=== PATIENT | male | born 1960 | race Caucasian/White ===

== ENCOUNTER 2017-05-19 09:54 | Emergency (ER) | payer SELFPAY ==
[2017-05-19 10:46] VITALS: BP 183/97; PULSE 89; RESP 18; TEMP 36.6; O2SAT 96; BMI 29.8
[2017-05-19 10:58] LABS: UTC Influenza A Antigen Negative (Negative); UTC Influenza B Antigen Negative (Negative); UTC Strep Screen (Rapid) Negative (Negative)
--- NOTE | 2017-05-19 11:12 | HMH.EDUTC ---
[facility] [place] Clinical Impression: Acute sinusitis with symptoms > 10 days Disposition: Home, Self-Care Condition on Discharge: Good Instructions: DI for Sinusitis Additional Instructions: * Start antibiotic and be sure to take as ordered for the FULL length of time even if you feel better. Sinus infections do not get better overnight. It may take 2-3 days to notice much improvement so be sure to use conservative measures as discussed for symptoms. * Avoid sudafed and over the counter medications that contain decongestants as these WILL raise your BP even higher. Coricidin HBP is a line of products for people with high blood pressure * Flonase 2 sprays each nostril daily to help with nasal congestion, sinus and ear pressure/inflammation * No steroids with your BP so high. You need to take your BP medications daily. * Lots of fluids * Sleep elevated * Humidifier/vaporizer Prescriptions: Doxycycline Hyclate [Vibramycin] 100 mg PO BID #20 cap Fluticasone Propionate [Flonase 50mcg nasal spray 16gm] 2 spr NS DAILY #1 bottle Referrals: Paul Thorne MD [Primary Care Provider] - (IMMEDIATELY for new or worsening symptoms OR no noticeable improvement over the next 3-5 days. 911 for difficulty breathing or swallowing. ) Time of Disposition: 11:23 Medical Decision Making Vital Signs: 05/19/17 10:46 Temperature 97.8 F Temperature Source Temporal Artery Scan Pulse Rate [Right Radial] 89 Respiratory Rate 18 Blood Pressure [Right Arm] 183/97 Blood Pressure Mean [Right Arm] 125 02 Sat by Pulse Oximetry 96 Oxygen Delivery Method Room Air - Lab Data Lab results reviewed: Yes: I reviewed the patient's lab results. Lab Results 05/19/17 10:03: Influenza Type A Ag Negative, Influenza Type B Ag Negative, Strep Scn Rapid Clinic Negative Orders (Tests/Meds): ORDERS Category Date Time Status Strep Screen Confirmation Stat Micro 05/19/17 10:03 Received - Ryan Inquiry Pt receiving controlled substance: No - Reevaluation(s) Reevaluation #1: Pt wanting injection just any injection possible . States itching and rash with amoxicillin. Unknown tolerance with cephlosporins. BP elevated due to not taking BP medications and use of over the counter medications for symptoms. Discussed risk associated w/ steroids and HTN. [facility] [place] - General Stated complaint: Poss Flu Time Seen by Provider: 05/19/17 11:12 Mode of Arrival: Family Vehicle Source of Information: Patient Limitations: No Limitations Description of Symptoms (Recalled from Triage Doc. by RN): pt c/o sore throat, cough, congestion. HEENT Symptoms (Recalled from RN notes): Yes (sore throat, cough, congestion) Resp Symptoms (Recalled from RN notes): No Skin Symptoms (Recalled from RN notes): No MS Symptoms (Recalled from RN notes): No Functional Status (Recalled from RN notes): na - History of Present Illness Provider Complaint: c/o sinus pressure and congestion. Started 2 weeks ago like I had been hit by a bus . Seemed to improve somewhat over 5 days, felt just ok for several days then suddenly back with worsening nasal and sinus congestion/pressure. He isn't sure what he has been taking for symptoms. Everything over the counter . Thinks allergy medication, sinus medication, decongestants, mucinex. no cough syrup. Has not been taking three BP medications for the last 3-4 days. No known sick contacts. - Related Data Home Medications Medication Instructions Recorded Confirmed Benazepril HCl 10 mg PO DAILY 05/19/17 05/19/17 Bisoprolol Fumarate 10 mg PO DAILY 05/19/17 05/19/17 Lisinopril [Lisinopril 20mg Tab] 20 mg PO DAILY 05/19/17 05/19/17 Previous Rx's Medication Instructions Recorded Doxycycline Hyclate [Vibramycin] 100 mg PO BID #20 cap 05/19/17 Fluticasone Propionate [Flonase 2 spr NS DAILY #1 bottle 05/19/17 50mcg nasal spray 16gm] Allergies Allergy/AdvReac Type Severity Reaction Status Date / Time Mustaphai
--- NOTE | 2017-05-19 11:20 | ED_ITS ---
[facility] [place] Impression: Acute sinusitis with symptoms > 10 days Disposition: Home, Self-Care Condition on Discharge: Good Instructions: DI for Sinusitis Additional Instructions: * Start antibiotic and be sure to take as ordered for the FULL length of time even if you feel better. Sinus infections do not get better overnight. It may take 2-3 days to notice much improvement so be sure to use conservative measures as discussed for symptoms. * Avoid sudafed and over the counter medications that contain decongestants as these WILL raise your BP even higher. Coricidin HBP is a line of products for people with high blood pressure * Flonase 2 sprays each nostril daily to help with nasal congestion, sinus and ear pressure/inflammation * No steroids with your BP so high. You need to take your BP medications daily. * Lots of fluids * Sleep elevated * Humidifier/vaporizer Prescriptions: Doxycycline Hyclate [Vibramycin] 100 mg PO BID #20 cap Fluticasone Propionate [Flonase 50mcg nasal spray 16gm] 2 spr NS DAILY #1 bottle Referrals: Paul Thorne MD [Primary Care Provider] - (IMMEDIATELY for new or worsening symptoms OR no noticeable improvement over the next 3-5 days. 911 for difficulty breathing or swallowing. ) Time of Disposition: 11:23 Medical Decision Making Vital Signs: 05/19/17 10:46 Temperature 97.8 F Temperature Source Temporal Artery Scan Pulse Rate [Right Radial] 89 Respiratory Rate 18 Blood Pressure [Right Arm] 183/97 Blood Pressure Mean [Right Arm] 125 02 Sat by Pulse Oximetry 96 Oxygen Delivery Method Room Air - Lab Data Lab results reviewed: Yes: I reviewed the patient's lab results. Lab Results 05/19/17 10:03: Influenza Type A Ag Negative, Influenza Type B Ag Negative, Strep Scn Rapid Clinic Negative Orders (Tests/Meds): ORDERS Category Date Time Status Strep Screen Confirmation Stat Micro 05/19/17 10:03 Received - Ryan Inquiry Pt receiving controlled substance: No - Reevaluation(s) Reevaluation #1: Pt wanting injection just any injection possible . States itching and rash with amoxicillin. Unknown tolerance with cephlosporins. BP elevated due to not taking BP medications and use of over the counter medications for symptoms. Discussed risk associated w/ steroids and HTN. [facility] [place] - General Stated complaint: Poss Flu Time Seen by Provider: 05/19/17 11:12 Mode of Arrival: Family Vehicle Source of Information: Patient Limitations: No Limitations Description of Symptoms (Recalled from Triage Doc. by RN): pt c/o sore throat, cough, congestion. HEENT Symptoms (Recalled from RN notes): Yes (sore throat, cough, congestion) Resp Symptoms (Recalled from RN notes): No Skin Symptoms (Recalled from RN notes): No MS Symptoms (Recalled from RN notes): No Functional Status (Recalled from RN notes): na - History of Present Illness Provider Complaint: c/o sinus pressure and congestion. Started 2 weeks ago like I had been hit by a bus . Seemed to improve somewhat over 5 days, felt just ok for several days then suddenly back with worsening nasal and sinus congestion/pressure. He isn't sure what he has been taking for symptoms. Everything over the counter . Thinks allergy medication, sinus medication, decongestants, mucinex. no cough syrup. Has not been taking three BP medications for the last 3-4 days. No known sick contacts. - Related Data Home Medications
[2017-05-19 11:27] VITALS: BP 0/0; PULSE 87; RESP 20; TEMP 36.6; O2SAT 99
--- NOTE | 2017-05-19 11:28 | PC.NURSE ---
1127-PT REFUSED TO HAVE BLOOD PRESSURE RECHECKED D/T THE BLOOD PRESSURE CUFF SQUEEZING HIS ARM TOO TIGHT.
== END 2017-05-19 11:29 | disposition home or self-care (01) ==
PROVIDERS: Emergency Provider Nurse Practitioner Family; Family Provider Family Medicine; PCP Family Medicine
DX: J01.90 Acute sinusitis, unspecified (principal); I10 Essential (primary) hypertension; Z79.899 Other long term (current) drug therapy; F17.210 Nicotine dependence, cigarettes, uncomplicated
CPT/HCPCS: 87804; 87880; 99202

== ENCOUNTER → 2021-08-02 12:51 | Outpatient (CLI) | payer OTHER, SELFPAY ==
--- NOTE | 2021-08-02 13:00 | CA_ITS ---
APPROVED REPORT EXAM: Comprehensive 2D, Doppler, and color-flow Echocardiogram Paster Hat Lining: Brittney Benavides RT(R) Ht: 6 ft 0 in Wt: 225lbs BSA: 2.24 BP: 143/83 mmHg Indications: CVA 3 weeks ago, smoker, fatigue, HTN, MURPHY, hyperlipidemia, family history of HD 2D Dimensions LVOT 2.05 cm (M/F) 1.5-2.5 LA Volume 51.00 mL LA Volume Index 22.76 mL/m2 (M/F) 16-34 M-Mode Dimensions RVDd 3.42 cm (0.9-2.6) LA Diam 3.63 cm (1.9-4.0) LVDd 4.87 cm (3.5-5.7) Ao Diam 2.26 cm (2.0-3.7) LVDs 3.38 cm (3.5-5.7) IVSd 1.41 cm (0.6-1.1) PWd 1.13 cm (0.6-1.1) EF (Teich) 57.90% FS 30.60% EDV (Teich) 111.20 mL ESV (Teich) 46.80 mL LV Diastology E Decel Time 190.00 (160-240 msec) E/A Ratio 1.7 MED E' 6.80 (< 7 cm/sec) E'/MED E' Ratio 14.41 (>14) LAT E' 8.90 (<10 cm/sec) E/LAT E' Ratio 11.01 (>14) Mitral Valve MV E Max Niko. 98.00 (40-130 cm/s) MV A Velocity 59.00 (40-130 cm/s) E/A Ratio 1.67 MV Decel. Time 190.00 (160-240 ms) MV PHT 56.00 ms Left Ventricle Left atrium is qualitatively mildly enlarged, left ventricle is normal size, mild concentric left ventricular hypertrophy, estimated ejection fraction 55% with no regional wall motion abnormality, diastolic parameters are inconclusive. Right Ventricle Right atrium and right ventricle are mildly enlarged with normal contractility. Aortic Valve Aortic valve is minimally thickened and fibrosed there is no aortic stenosis or aortic insufficiency. Mitral Valve Mitral valve leaflets are minimally thickened, there is no mitral stenosis, there is trace mitral regurgitation. Tricuspid Valve Tricuspid valve grossly normal, there is trace tricuspid regurgitation, tricuspid regurgitation jet velocity is inadequate for calculation of the right ventricular systolic pressure. Pulmonic Valve Pulmonic valve is poorly visualized. Great Vessels Aortic root is normal size. Inferior vena cava is normal size with normal inspiratory collapse. Pericardium No significant pericardial effusion noted. Conclusion 1. Mild biatrial enlargement, normal left ventricular size, mild concentric left ventricular hypertrophy, estimated ejection fraction 55% with no regional wall motion abnormality, diastolic parameters are inconclusive. 2. Mildly enlarged right ventricle with normal contractility. 3. Thickened and calcified aortic valve without aortic stenosis or aortic insufficiency. 4. Trace mitral and tricuspid regurgitation. 5. No significant pericardial effusion. 6. Inferior vena cava normal size with normal spectral collapse. Electronically signed by : Hunter Wolfe MD 08/03/2021 14:37:48
--- NOTE | 2021-08-02 13:42 | CT_ITS ---
FINAL REPORT TECHNIQUE: Thin section axial CT with IV contrast supplemented with multiplanar reconstruction under CT angiogram protocol. This study was performed with techniques to keep radiation doses as low as reasonably achievable (ALARA). Individualized dose reduction techniques using automated exposure control or adjustment of mA and/or kV according to the patient''s size were employed. NASCET criteria was utilized during interpretation. CLINICAL HISTORY: ISCHEMIC CEREBROVASCULAR ACCIDENT OF FRONTAL LOBE (PATIENT STATES THIS WAS 3 WEEKS AGO, MRI AT FINDINGS: Aortic arch: Arch shows no significant narrowing. There is mild stenosis of the proximal left subclavian artery. Right carotid: There is mild stenosis of the proximal right ICA, less than 50%. Left carotid: Left ICA is occluded. Vertebral: Proximal right vertebral artery is occluded with reconstitution distally. Left vertebral artery is dominant. Mild fibrosis/scarring is seen in the lung apices. IMPRESSION: Occlusion of the left ICA. Occluded proximal right vertebral artery with reconstitution distally. Less than 50% stenosis of the proximal right ICA. Mild stenosis of the proximal left subclavian artery. Reviewed, Interpreted and Dictated by Salty Koroma III, MD Transcribed by Angel Rodas Authenticated by Salty Koroma III, MD on 08/02/2021 03:31:13 PM [facility]
--- NOTE | 2021-08-02 13:42 | CT_ITS ---
FINAL REPORT TECHNIQUE: Thin section axial CT with IV contrast supplemented with multiplanar reconstruction under CT angiogram protocol. 3-D reconstructions were performed. This study was performed with techniques to keep radiation doses as low as reasonably achievable (ALARA). Individualized dose reduction techniques using automated exposure control or adjustment of mA and/or kV according to the patient''s size were employed. CLINICAL HISTORY: CEREBROVASCULAR ACCIDENT OF BASIL GANGLIA (PATIENT STATES THIS HAPPENED ABOUT 3 WEEKS AGO, MRI DONE AT FINDINGS: The distal vertebral, basilar and right internal carotid arteries have an unremarkable appearance. There is occlusion of the distal left internal carotid artery with reconstitution in the post cavernous left ICA. There is a somewhat small caliber of the left M1 segment. IMPRESSION: Occlusion of the distal left ICA with reconstitution of the post cavernous left ICA. Somewhat small caliber of the left M1 segment. Reviewed, Interpreted and Dictated by Salty Koroma III, MD Transcribed by Angel Rodas Authenticated by Salty Koroma III, MD on 08/02/2021 03:31:13 PM [facility]
== END ==
PROVIDERS: PCP Family Medicine; Visit Provider Family Medicine
DX: I63.81 Other cerebral infarction due to occlusion or stenosis of small artery (principal); I10 Essential (primary) hypertension
CPT/HCPCS: 70496; 70498; 93306; Q9967

== ENCOUNTER 2021-10-19 15:01 | Inpatient (IN) | payer OTHER, SELFPAY ==
[2021-10-19] VITALS (23 sets, daily range): BP systolic 81–187; BP diastolic 44–92; PULSE 40–88; RESP 15–31; TEMP 36.5–36.8; O2SAT 92–100; BMI 30.5; BMI 27.8; BMI 29.1
--- NOTE | 2021-10-19 15:11 | PC.NURSE ---
notified rad of ct head stroke protocol
--- NOTE | 2021-10-19 15:18 | PC.NURSE ---
FINGER STICK 112 BRIDGET RN SAID CANCEL THE HEAD CT
--- NOTE | 2021-10-19 15:23 | HMH.EDGENADL ---
ED Disposition Clinical Impression: Bradycardia, Brain TIA, COVID-19, Elevated troponin Hypotension Qualifiers: Hypotension type: unspecified hypotension type Qualified Code(s): I95.9 - Hypotension, unspecified Disposition: Admitted As Inpatient Condition on Discharge: Serious - Critical Care Critical Care Time: Yes Attestation: On 10/19/21, the high probability of a clinically significant, sudden or life threatening deterioration of the following system(s) required my full and direct attention, intervention and personal management. The time I documented below is in addition to time spent performing reported procedures but includes the following listed in this critical care notation. Total Critical Care Time: 45 Vital system(s) involved:: Circulatory Failure My critical care processes included: Assessment & monitoring of V/S, Initial and Re-exams, Data Review/Interpretation, Coordinating Care, Medication Orders and management, Documentation Medical Decision Making - Medical Records Medical records reviewed: Yes: I reviewed the patient's medical records. MR Comment: Reviewed prior records of CTA head and neck, see below - Ryan Inquiry Pt receiving controlled substance: No Vital Signs: 10/19/21 15:01 10/19/21 15:47 10/19/21 16:29 Temperature 98 F Temperature Source Oral Pulse Rate 46 L 41 L Pulse Rate [Radial] 48 L Respiratory Rate 16 20 Blood Pressure 133/59 L 109/67 L Blood Pressure [Right Arm] 187/92 H Blood Pressure Mean [Right Arm] 123 Blood Pressure Position Blood Pressure Position [Right Arm] Sitting 02 Sat by Pulse Oximetry 98 10/19/21 16:35 10/19/21 17:07 10/19/21 17:09 Temperature Temperature Source Pulse Rate 44 L 42 L 44 L Pulse Rate [Radial] Respiratory Rate 15 Blood Pressure 106/60 L 81/44 L 81/44 L Blood Pressure [Right Arm] Blood Pressure Mean [Right Arm] Blood Pressure Position Sitting Blood Pressure Position [Right Arm] 02 Sat by Pulse Oximetry 98 10/19/21 17:18 10/19/21 17:26 10/19/21 17:31 Temperature Temperature Source Pulse Rate 43 L 42 L 42 L Pulse Rate [Radial] Respiratory Rate Blood Pressure 98/65 L 125/47 L 104/59 L Blood Pressure [Right Arm] Blood Pressure Mean [Right Arm] Blood Pressure Position Sitting Sitting Blood Pressure Position [Right Arm] 02 Sat by Pulse Oximetry 10/19/21 18:17 10/19/21 18:23 10/19/21 18:30 Temperature Temperature Source Pulse Rate 45 L 44 L 44 L Pulse Rate [Radial] Respiratory Rate 17 Blood Pressure 117/57 L 96/64 L 113/60 Blood Pressure [Right Arm] Blood Pressure Mean [Right Arm] Blood Pressure Position Sitting Blood Pressure Position [Right Arm] 02 Sat by Pulse Oximetry 100 10/19/21 18:40 10/19/21 18:51 10/19/21 19:02 Temperature Temperature Source Pulse Rate 41 L 44 L 41 L Pulse Rate [Radial] Respiratory Rate Blood Pressure 115/72 126/47 L 147/71 H Blood Pressure [Right Arm] Blood Pressure Mean [Right Arm] Blood Pressure Position Sitting Blood Pressure Position [Right Arm] 02 Sat by Pulse Oximetry 10/19/21 19:13 Temperature Temperature Source Pulse Rate 40 L Pulse Rate [Radial] Respiratory Rate Blood Pressure 157/76 H Blood Pressure [Right Arm] Blood Pressure Mean [Right Arm] Blood Pressure Position Sitting Blood Pressure Position [Right Arm] 02 Sat by Pulse Oximetry - Lab Data Lab Results 10/19/21 15:20: SARS-CoV-2 (PCR) Detected A, Influenza A Untype (PCR) Not detected, Influenza Type B (PCR) Not detected 10/19/21 16:00: WBC 5.9, RBC 4.46 L, Hgb 15.1, Hct 45.2, MCV 101.4 H, MCH 33.8 H, MCHC 33.4, RDW 13.2, Plt Count 129 L, MPV 10.3, Neut % (Auto) 59.7, Lymph % (Auto) 30.3, [place] % (Auto) 7.4, Eos % (Auto) 1.3, Baso % (Auto) 1.2, Neut # (Auto) 3.5, Lymph # (Auto) 1.8, [place] # (Auto) 0.4, Eos # (Auto) 0.1, Baso # (Auto) 0.1 10/19/21 16:00: PT 10.9, INR 0.96, APTT 35.0 H
--- NOTE | 2021-10-19 15:33 | PC.NURSE ---
FAMILY IN WITH PT AND DR GARCIA IN WITH THEM
--- NOTE | 2021-10-19 15:44 | CT_ITS ---
FINAL REPORT TECHNIQUE: Thin section axial images were obtained from skull base to vertex without contrast. CLINICAL HISTORY: slurred speech, dropping things COMPARISON: CTA head dated August 02, 2021 FINDINGS: There is no mass effect or midline shift. There is no hydrocephalus. The ventricles are symmetric in size and configuration. There is no extra-axial or intraparenchymal hemorrhage. There is age indeterminate left frontal hypodensity. There is left occipital encephalomalacia. The posterior fossa is without acute abnormality. The basilar cisterns are preserved. The soft tissues are without acute abnormality. No acute osseous abnormality is identified. IMPRESSION: No mass effect, midline shift, or acute hemorrhage. Age indeterminate left frontal hypodensity. If indicated this could be further evaluated with MRI. Reviewed, Interpreted and Dictated by Ana Giraldo MD Transcribed by Angel Rodas Authenticated and [facility]
--- NOTE | 2021-10-19 15:50 | PC.NURSE ---
Pt to CT
--- NOTE | 2021-10-19 15:51 | PC.NURSE ---
pt to CT via stretcher at this time
--- NOTE | 2021-10-19 16:01 | XR_ITS ---
PROCEDURE INFORMATION: Exam: XR Chest Exam date and time: 10/19/2021 4:24 PM Age: 61 years old Clinical indication: Shortness of breath; Additional info: SOB TECHNIQUE: Imaging protocol: Radiologic exam of the chest. Views: 1 view. COMPARISON: CT ANGIO NECK 08/02/2021 2:07 PM FINDINGS: Lungs: Subtle bibasilar interstitial opacities. Upper lungs are unremarkable. Pleural spaces: Unremarkable. No pleural effusion. No pneumothorax. Heart/Mediastinum: Unremarkable. No cardiomegaly. Bones/joints: Unremarkable. IMPRESSION: Patchy bibasilar interstitial infiltrates.
--- NOTE | 2021-10-19 16:02 | PC.NURSE ---
pts family advised that dr palma office would send down a list of meds
[2021-10-19 16:07] LABS: Influenza A, PCR Not Detected (NotDetected); Influenza B, PCR Not Detected (NotDetected)
--- NOTE | 2021-10-19 16:15 | PC.NURSE ---
rad at BS for portable xray
[2021-10-19 16:36] LABS: Basophils # 0.1 K/mm3 (0-0.2); Basophils % 1.2 % (0.1-2.0); Chloride 104 mmol/L (98-107); Eosinophils # 0.1 K/mm3 (0.0-0.4); Eosinophils % 1.3 % (0.1-12.0); Hematocrit 45.2 % (42.0-52.0); Hemoglobin 15.1 g/dL (14.1-18.0); Lymphocytes # 1.8 K/mm3 (0.7-4.5); Lymphocytes % 30.3 % (10-50); Mean Corpuscular HGB Conc 33.4 g/dL (31.8-35.4); Mean Corpuscular Hemoglobin 33.8 pg (27.0-31.2); Mean Corpuscular Volume 101.4 fl (80-94); Mean Platelet Volume 10.3 fl (7.4-10.4); Monocytes # 0.4 K/mm3 (0.1-1.0); Monocytes % 7.4 % (1.7-9.3); Neutrophils # 3.5 K/mm3 (1.8-7.8); Neutrophils % 59.7 % (37.0-80.0); Platelet Count 129 K/mm3 (142-424); Red Blood Count 4.46 M/mm3 (4.60-6.20); Red Cell Distribution Width 13.2 % (11.5-17.5); White Blood Count 5.9 K/mm3 (4.8-10.8)
[2021-10-19 16:37] LABS: Potassium 4.8 mmoL/L (3.5-5.1); Sodium 137 mmol/L (136-145)
[2021-10-19 16:39] LABS: Alanine Aminotransferase 51 U/L (12-78); Aspartate Amino Transferase 49 U/L (17-59); Blood Urea Nitrogen 44 mg/dl (9-20); Creatinine Clearance Estimated 57 mL/min (50-200); Estimated Glomerular Filt Rate 39 ml/min (>60); GFR (African American) 47 ML/MIN (>60)
[2021-10-19 16:40] LABS: Albumin Level 4.4 g/dl (3.5-5.0); Albumin/Globulin Ratio 1.4 (1.1-1.8); Alkaline Phosphatase 71 U/L (38-126); Anion Gap 11.8 mEq/L (5-15); Bilirubin,Total 0.6 mg/dl (0.2-1.3); Calcium 9.5 mg/dl (8.4-10.2); Carbon Dioxide 26 mmol/L (22.0-30.0); Globulin 3.2 g/dL (1.3-3.2); Glucose 122 mg/dl (74-100); Total Protein,Serum 7.6 g/dl (6.3-8.2)
[2021-10-19 16:43] LABS: INR 0.96 (0.9-1.1); Prothrombin Time 10.9 seconds (10.1-12.5)
[2021-10-19 16:53] LABS: Troponin I 0.06 ng/ml (0.00-0.034)
[2021-10-19 16:57] LABS: Free Thyroxine Index 3.9 ug/dL (5.93-13.13); T4 (Thyroxine) 10.8 ug/dl (5.53-11.0); Triiodothryronine (T3) Uptake 36 % (23.5-40.5)
[2021-10-19 17:01] LABS: Coronavirus 19, PCR Detected (NotDetected)
--- NOTE | 2021-10-19 17:10 | PC.NURSE ---
CALLED TO BEDSIDE DUE TO NEW SYMPTOMS
--- NOTE | 2021-10-19 17:22 | ECG_ITS ---
APPROVED REPORT Exam: Resting ECG HR:41 bpm ECG Measurements Heart Rate 41 AXES VA 168 P 74 QRSd 111 QRS 15 QT 470 T 180 QTc 404 Conclusion SINUS BRADYCARDIA WITH SINUS ARRHYTHMIA MODERATE INTRAVENTRICULAR CONDUCTION DELAY [110+ ms QRS DURATION] ST DEVIATION AND MODERATE T-WAVE ABNORMALITY, CONSIDER LATERAL ISCHEMIA [-0.1+ mV T-WAVE IN I/aVL/V5/V6] ABNORMAL ECG UNCONFIRMED REPORT Electronically signed by : Jaydon Salvador MD 10/21/2021 08:05:33
[2021-10-19 17:25] LABS: POC Glucose,Bedside 111 (70-110)
--- NOTE | 2021-10-19 17:29 | PC.NURSE ---
DR JACK PAGED
--- NOTE | 2021-10-19 17:33 | PC.NURSE ---
dr on the phone with dr kaufman to consult about pt
[2021-10-19 18:00] LABS: NT Pro Brain Natriuretic Pep. 227 pg/mL (0-125)
--- NOTE | 2021-10-19 18:15 | PC.NURSE ---
PT WITH RT SIDE FACIAL DROOP, RT SIDE ATAXIA, RT ARM DRIFT. PT APHASIC, UNABLE TO ANSWER QUESTIONS. MD SALDIVAR
--- NOTE | 2021-10-19 18:26 | PC.NURSE ---
PT SYMPTOMS RESOLVED. PT ANSWER QUESTIONS ALERT AND ORIENTED X 4 FAMILY AT BEDSIDE.
--- NOTE | 2021-10-19 18:48 | PC.NURSE ---
7093 ROOM ASSIGNMENT REQUESTED, ROOM 206. ALL STAFF NOTIFIED
[2021-10-19 18:55] LABS: Lactic Acid 1.1 mmol/L (0.7-2.1)
[2021-10-19 19:00] LABS: Troponin I 0.06 ng/ml (0.00-0.034)
--- NOTE | 2021-10-19 19:23 | PC.NURSE ---
PT GOING FOR CT
--- NOTE | 2021-10-19 19:26 | PC.NURSE ---
Pt ambulated with staff assist to bathroom
--- NOTE | 2021-10-19 20:23 | PC.NURSE ---
Called report to Carole and updated family and pt that he would be going to his room shortly. No other needs at this time.
--- NOTE | 2021-10-19 20:35 | PC.NURSE ---
Pt sitting on side of bed at this time at his baseline mentality with a slight right facial droop. no other deficits noted.
--- NOTE | 2021-10-19 20:46 | PC.NURSE ---
pt arrived to floor via wheel chair at this time
--- NOTE | 2021-10-19 21:32 | PC.NURSE ---
2100-pt arrived to floor via wheel chair, pt went to bathroom upon arrival; bp 119/63, decreased levo drip to 2mcg/min (from 6mcg/min) 2109-bp 99/44, held levo drip at this time 2119-bp 127/71 2129-bp 97/63
--- NOTE | 2021-10-19 22:30 | PC.NURSE ---
updated MD Valentino about pt's confusion waxing and waning, stated to keep levophed drip on for increased perfusion to brain, want to keep systolic greater than 140mmHg; also informed of pt's snoring answer on admission sleep apnea criteria questions, no new orders at this time
[2021-10-19 22:33] LABS: Troponin I 0.07 ng/ml (0.00-0.034)
--- NOTE | 2021-10-19 23:48 | PC.NURSE ---
informed pt npo now for possible pacemaker placement tomorrow
[2021-10-20] VITALS (17 sets, daily range): BP systolic 124–174; BP diastolic 62–81; PULSE 40–55; RESP 17–24; TEMP 36.4–36.9; O2SAT 96–100
--- NOTE | 2021-10-20 02:42 | PC.NURSE ---
0100-bp 111/60, increased levo drip to 4mcg/min 0200-bp 124/62, increased levo drip to 6mcg/min
--- NOTE | 2021-10-20 05:28 | PC.NURSE ---
pt restless most of shift, pt answers orientation questions appropriately but has intermittent confusion that waxes and wanes, pt has no drift to any extremity, pt has right facial droop, pt ambulating to bathroom with standby assist, pt's HR remains 40-50's throughout shift, pt has been npo since midnight for possible pacemaker placement today, pt's bp stable but on levo drip at 6mcg/min to keep pt's systolic blood pressure greater than 140mmHg, MIVF going at 100mL/hr
--- NOTE | 2021-10-20 09:58 | HMH.HP ---
*Admission Date: 10/19/21 <Haydee Max - 10/20/21 10:15> *Chief complaint: weakness, bradycardia <Haydee Max - 10/20/21 10:15> *History of present illness: History obtained from patient, patient's son and son's girlfriend, and family friend that is a nurse. The patient is minimizing his complaints and does not seem like he wants to be here. He feels like he was forced to come here by his family. Family and friends states that since Friday they have noticed that his speech is different than normal. He has trouble finding his words. He does not speak as quickly or sharply as usual. They have noticed him dropping things. No specific one-sided weakness except for a droop of the left side of his mouth. His family friend that is a nurse took his heart rate yesterday and it was in the 40s. She called Dr. Valentino today and he was advised to come to the emergency department for evaluation. The patient denies any pain. He is denying any specific complaints at present. Denies headache. He also was diagnosed with COVID on Friday. He was having body aches and headaches but now that has resolved. States he has been in bed since Friday. 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 He had a CT angiogram of his head and neck done at this facility and then was sent to [facility] in [place]. He says he was seen by a brain surgeon and was advised that he is not a candidate for surgery because of the risk of dislodging or plaque. He was started on cholesterol medication and a baby aspirin a day. He was already on blood pressure medication prior to this event, which is not changed. He is supposed to see a neurologist on October 29. Since those events family states that he has episodes that last several minutes or he will have weakness and blurry vision, however he has never had an episode that lasted this long and the speech problems and left mouth droop are new symptoms. Patient had an episode of aphasia. On examination he has a right facial weakness and mild drift and ataxia of his right arm. Blood pressure noted to be 80s. Heart rate remains in the 40s. Fluid bolus started. Atropine dose given. Blood pressure came up to 110 systolic, but heart rate remained essentially unchanged. However, symptoms improved. He is speaking now and answering questions appropriately. Facial asymmetry improved markedly. He still has mild ataxia of his right arm. I contacted Dr. De Souza at 7:15 PM: He reports that the patient be kept on Levophed drip with target blood pressure greater than 140. If bradycardia persists he will put in a pacemaker. He will contact Dr. Valentino. (above as per ER physician) This morning patient states he feels fine. He has no weakness or facial asymmetry. He states he is breathing normally and has no chest pain. He did have pneumonia on chest x-ray and was started on antibiotics and remdesivir. His heart rate is still in the 40s. He remains on a Levophed drip. His blood pressure has improved. <Haydee Max 10/20/21 10:15> [facility] History I have reviewed the patient's past medical history: Yes <Haydee Max 10/20/21 10:15> Medical History: Reports:: Cerebrovascular Accident, Hypertension Denies:: Cancer, Diabetes Mellitus Type 1, Diabetes Mellitus Type 2, MRSA <Haydee Max 10/20/21 10:15> *Have you ever received a pneumonia vaccine?: No <Haydee Max 10/20/21 10:15> *Have you received a flu vaccine this season?: No <Haydee Max 10/20/21 10:15> Other Surgeries: Yes: Other (Back sx) <Haydee Max 10/20/21 10:15> Amputation: No <Haydee Max 10/20/21 10:15> Fractures: No <Haydee Max 10/20/21 10:15> - *Social History Smoking Status: Current every day smoker <Haydee Max 10/20/21 10:15> Tobacco Type: cigarettes <Haydee Max 10/20/21 10:15> # Packs/Day (cigarettes): 1 <Haydee Max 10/20/21 10:15> Alcohol Intake: never <Haydee Max 10/20/21 10:15> [place]
--- NOTE | 2021-10-20 12:07 | PC.NURSE ---
Levo gtt titrated to 4 mcg/min.
--- NOTE | 2021-10-20 13:55 | HMH.PHAVTE ---
[facility] Pharmacy VTE Monitoring - Patient Demographics Admission date: 10/20/21 Report Date: 10/20/21 Time: 13:55 Allergies/Adverse Reactions: Patient Allergies Penicillins Allergy (Mild, Verified 07/04/18 12:21) Rash Height: 1.8 m Weight: 94.432 kg Patient Problems: Current Active Problems Bradycardia (Acute) Hypotension (Acute) Brain TIA (Acute) COVID-19 (Acute) Elevated troponin (Acute) Pneumonia due to COVID-19 virus (Acute) Hypertension (Chronic) History of CVA (cerebrovascular accident) (Chronic) - VTE Risk Labs: VTE Related Lab Results Hgb 15.1 g/dL (14.1-18.0) 10/19/21 16:00 Hct 45.2 % (42.0-52.0) 10/19/21 16:00 Plt Count 129 K/mm3 (142-424) L 10/19/21 16:00 PT 10.9 seconds (10.1-12.5) 10/19/21 16:00 INR 0.96 (0.9-1.1) 10/19/21 16:00 APTT 35.0 seconds (22.8-30.6) H 10/19/21 16:00 BUN 44 mg/dl (9-20) H 10/19/21 16:00 Creatinine 1.80 mg/dl (0.66-1.25) H 10/19/21 16:00 Estimated Creat Clear 57 mL/min (50-200) 10/19/21 16:00 - Prophylaxis Types of VTE Prophylaxis: TEDS Knee High Location of Applied Device: Bilateral Lower Extremeties (RAFAEL HOSE ORDERED)
--- NOTE | 2021-10-20 17:45 | PC.NURSE ---
Levo gtt currently on 4 mcg/min, did have to turn up to 6 mcg/min this shift and currently on 4 mcg/min. Dr. De Souza ordered synthroid 25 mcg po daily this am. CB in reach. BP currently 147/86, hr 54. Dr. De Souza stated he wanted to wean levo, but keep sbp greater than 140.
[2021-10-21] VITALS (24 sets, daily range): BP systolic 111–190; BP diastolic 56–98; PULSE 41–73; RESP 13–34; TEMP 35.7–36.6; O2SAT 92–100; BMI 29.1; BMI 29.0
--- NOTE | 2021-10-21 | IR_ITS ---
APPROVED REPORT Patient Location: Inpatient Physical Chemistry Teacher: HENRY Coley RT (R) PROCEDURES 1. Pocket formation for Permanent Pacemaker Placement. 2. Placement of an atrial sensing and pacing coil into the right atrial appendage. 3. Placement of a ventricular sensing and pacing coil in the right ventricular apex. 4. Permanent Pacemaker Placement. INDICATION Symptomatic Bradycardia Informed consent was obtained prior to the procedure. COMPLICATIONS None Estimated Blood Loss: Less than 10 ML TECHNIQUE 1% Lidocaine with epinephrine used to anesthetized the left anterior aspect of the chest. Scalpel was used to make the initial cutaneous incision while electrocautery was used to dissect down tinto the fascia. The fascia was lifted off the pectoralis muscle and digitally manipulated creating a pocket for the pacemaker. The patient was then placed in Trendelenburg position and the subclavian vein was accessed twice via the Selinger technique, there are two wires in the vein. A 6 Tu[place]uan sheath was placed under fluoroscopic guidance into the subclavian vein over one of the wires while keeping the other wire in place within the subclavian vein. The dilator was removed from the sheath. Using fluoroscopic guidance, the ventricular lead was placed into the right ventricular apex, screwed and secured into place. Electronic interrogation proved acceptable thresholds and voltage within the lead. Using 3-0 silk, the ventricular lead was then secured into place. Lead was secured to the facia using the 3-0 silk. Following this, the sheath was pealed away. An additional 6 Tu[place] fresh sheath and dilator was placed over the existing wire. Using fluoroscopic guidance, the atrial lead was the placed into the right atrial appendage and screwed and secured in place. Electrical interrogation demonstrated acceptable thresholds and voltage number. The atrial lead was then secured into place using 3-0 silk. 1 gram of Ancef was used to flush the pocket. Following the pacemaker generator being secured to the fascia and in place, Monocryl was used to close the subcutaneous layers while rissa were used to close the cutaneous layer. A pressure dressing was placed and the patient was transferred to the postop holding area in stable condition for postoperative care. INTERROGATION Generator Model number: Accolade L311 Generator Serial number: [id number] Atrial lead model number: Ingevity+ IS-1 Bi Positive Fix RA/RV 52 cm 7841 Atrial lead serial number: [id number] P-wave: 4.5 mV Impedence: 591 Ohms Threshold: 1.0V @ 0.4ms Right Ventricular lead model number: Ingevity + IS-1 Bi Positive Fix RA/RV 59 cm 7842 Right Ventricular lead serial number: [id number] R-wave: 8.0 mV Impedence: 725 Ohms Threshold: 1.0V @ 0.4 ms Pacing Parameters: Mode: DDDR Base/Max Track:70 ppm / 130 ppm No diaphragmatic stimulation at 10 volts. IMPRESSION 1. Successful pocket formation for Permanent Pacemaker Placement. 2. Successful placement of an atrial sensing and pacing coil into the right atrial appendage. 3. Successful placement of a ventricular sensing and pacing coil in the right ventricular apex. 4. Successful permanent Pacemaker Placement. PLAN 1. Postop wound care. Electronically signed by : Collins De Souza MD 10/21/2021 14:34:41
--- NOTE | 2021-10-21 05:53 | PC.NURSE ---
0530-bp 120/60, increased levophed drip to 6mcg/min
--- NOTE | 2021-10-21 06:04 | PC.NURSE ---
bp 190/97, decreased levophed drip to 3mcg/min
[2021-10-21 07:08] LABS: Alanine Aminotransferase 41 U/L (12-78); Albumin/Globulin Ratio 1.4 (1.1-1.8); Alkaline Phosphatase 68 U/L (38-126); Anion Gap 12.6 mEq/L (5-15); Aspartate Amino Transferase 48 U/L (17-59); Bilirubin,Total 0.4 mg/dl (0.2-1.3); Blood Urea Nitrogen 33 mg/dl (9-20); Calcium 8.7 mg/dl (8.4-10.2); Carbon Dioxide 22 mmol/L (22.0-30.0); Chloride 109 mmol/L (98-107); Creatinine Clearance Estimated 82 mL/min (50-200); Estimated Glomerular Filt Rate 57 ml/min (>60); GFR (African American) 68 ML/MIN (>60); Globulin 2.9 g/dL (1.3-3.2); Glucose 162 mg/dl (74-100); Potassium 4.6 mmoL/L (3.5-5.1); Sodium 139 mmol/L (136-145); Total Protein,Serum 6.9 g/dl (6.3-8.2)
--- NOTE | 2021-10-21 09:38 | HMH.ACPN2 ---
Internal Medicine - PN: Subj *Date: 10/21/21 *Time: 10:35 Interval history: Patient with no new complaints today. He was able to get some sleep overnight. Still on Levophed drip. Exam Vital signs and Labs for Last 24 Hours: Temp Pulse Resp BP Pulse Ox 96.3 F L 44 L 14 150/58 H 97 10/21/21 07:34 10/21/21 07:34 10/21/21 07:34 10/21/21 07:34 10/21/21 07:34 Laboratory Results - last 24 hr 10/21/21 06:42: Sodium 139, Potassium 4.6, Chloride 109 H, Carbon Dioxide 22, Anion Gap 12.6, BUN 33 H, Creatinine 1.30 H D, Estimated Creat Clear 82, Estimated GFR 57 L, Est GFR ( Amer) 68 D, Glucose 162 H, Calcium 8.7, Total Bilirubin 0.4, AST 48, ALT 41, Alkaline Phosphatase 68, Total Protein 6.9, Albumin 4.0, Globulin 2.9, Albumin/Globulin Ratio 1.4 Vital Signs - 24 hr 10/20/21 10:00 10/20/21 11:46 10/20/21 12:00 Temperature 97.6 F Pulse Rate 50 L Pulse Rate [Radial] 42 L Respiratory Rate 20 Blood Pressure [Left Arm] Blood Pressure [Right Arm] 158/66 H 02 Sat by Pulse Oximetry 97 10/20/21 12:06 10/20/21 14:00 10/20/21 16:00 Temperature 98.0 F Pulse Rate 50 L Pulse Rate [Radial] 53 L 43 L 54 L Respiratory Rate 18 19 20 Blood Pressure [Left Arm] 158/79 H 174/75 H 169/65 H Blood Pressure [Right Arm] 02 Sat by Pulse Oximetry 99 99 98 10/20/21 18:00 10/20/21 19:44 10/20/21 20:00 Temperature 98.4 F Pulse Rate 50 L Pulse Rate [Radial] 50 L 51 L Respiratory Rate 20 17 Blood Pressure [Left Arm] 144/76 H Blood Pressure [Right Arm] 132/73 02 Sat by Pulse Oximetry 99 100 10/20/21 22:00 10/20/21 23:45 10/21/21 00:00 Temperature 97.6 F Pulse Rate 49 L Pulse Rate [Radial] 55 L 51 L Respiratory Rate 20 20 Blood Pressure [Left Arm] 138/75 145/69 H Blood Pressure [Right Arm] 02 Sat by Pulse Oximetry 100 100 10/21/21 00:05 10/21/21 02:00 10/21/21 03:58 Temperature 97.8 F Pulse Rate Pulse Rate [Radial] 49 L Respiratory Rate 17 Blood Pressure [Left Arm] 151/62 H Blood Pressure [Right Arm] 02 Sat by Pulse Oximetry 100 100 10/21/21 04:00 10/21/21 05:30 10/21/21 06:00 Temperature Pulse Rate 41 L Pulse Rate [Radial] 53 L 49 L 42 L Respiratory Rate 26 H 25 H 34 H Blood Pressure [Left Arm] 146/56 H 120/60 190/97 H Blood Pressure [Right Arm] 02 Sat by Pulse Oximetry 100 99 100 10/21/21 07:34 Temperature 96.3 F L Pulse Rate Pulse Rate [Radial] 44 L Respiratory Rate 14 Blood Pressure [Left Arm] 150/58 H Blood Pressure [Right Arm] 02 Sat by Pulse Oximetry 97 I & O for Last 24 hours: Intake & Output 10/18/21 10/19/21 10/20/21 10/21/21 23:59 23:59 23:59 23:59 Intake Total 2.068 / 2.068 2753 / 2753 360 / 360 Output Total 1100 / 1100 1050 / 1050 Balance 2.068 / 2.068 1653 / 1653 -690 / -690 Weight 208 lb 3 oz 207 lb 3.752 oz - Constitutional no acute distress - *Routine Respiratory Exam Present: CTA bilaterally - *Routine Cardiovascular Exam Present: RRR - *Routine Extremities Exam Absent: cyanosis, clubbing, edema Assessment and Plan (1) Bradycardia Status: Acute Category: Medical Code(s): R00.1 - Bradycardia, unspecified (2) COVID-19 Status: Acute Category: Medical Code(s): U07.1 - COVID-19 (3) Elevated troponin Status: Acute Category: Medical Code(s): R77.8 - Other specified abnormalities of plasma proteins (4) Hypotension Status: Acute Qualifiers: Hypotension type: unspecified hypotension type Qualified Code(s): I95.9 - Hypotension, unspecified Category: Medical Code(s): I95.9 - Hypotension, unspecified (5) Pneumonia due to COVID-19 virus Status: Acute Category: Medical Code(s): U07.1 - COVID-19; J12.82 - Pneumonia due to coronavirus disease 2018 (6) Hypertension Status: Chronic Category: Medical Code(s): I10 - Essential (primary) hypertension (7) History of CVA (cerebrovascular accident) Status: Chronic Category: Medical
--- NOTE | 2021-10-21 11:26 | PC.NURSE ---
1100 - notified by Ciera Acuna RN that patient will be going for pacemaker placement at 1230 1105 - I notified pt's RN that pt will be going to lab tester at 1230 for pacemaker 1120 - notified by Carmelo Acuna RN to page anesthesia for procedure 1121 - anesthesia was paged [phone] - German returned call and was notified that pt was going to lab tester at 1230 for pacemaker placement
--- NOTE | 2021-10-21 12:24 | PC.NURSE ---
pt to cathlab
--- NOTE | 2021-10-21 14:07 | XR_ITS ---
PROCEDURE INFORMATION: Exam: XR Chest Exam date and time: 10/21/2021 2:06 PM Age: 61 years old Clinical indication: Device placement; Cardiac pacemaker placement or adjustment; Additional info: Confirm pacemaker/aid placement TECHNIQUE: Imaging protocol: Radiologic exam of the chest. Views: 1 view. COMPARISON: CR XR CHEST PORTABLE 10/19/2021 4:24 PM FINDINGS: Tubes, catheters and devices: Status post dual lead pacemaker placement. Lungs: Unremarkable. No consolidation. Pleural spaces: Unremarkable. No pleural effusion. No pneumothorax. Heart/Mediastinum: Unremarkable. No cardiomegaly. Bones/joints: Unremarkable. IMPRESSION: No evidence of acute cardiopulmonary disease.
--- NOTE | 2021-10-21 14:42 | PC.NURSE ---
back from analytical lab technician.
--- NOTE | 2021-10-21 17:57 | PC.NURSE ---
shift summary: GCS 15. Has been pleasant this shift. On RA. Bradycardia early this morning before pacemaker inserted. He is now A paced at a rate of 70. Is asymptomatic. HTN noted with SBP 140-170. O2 sat 100% on RA. Tolerates a cardiac diet. Pacemaker/AICD site CDI with original dressing in place. No edema noted. Uses urinal. NS infusing @ 100ml/hr. Pt requests to be discharged home tomorrow.
--- NOTE | 2021-10-21 20:03 | PC.NURSE ---
day DEENA Meredith faxed pharmacy bisoprolol 5mg PO, but order didn't go through to [facility] off on emar; day DEENA Meredith did give med @ 1840
[2021-10-22] VITALS: BP 170/86; PULSE 70; PULSE 73; RESP 20; O2SAT 97
[2021-10-22 02:00] VITALS: PULSE 70; RESP 18
[2021-10-22 04:00] VITALS: BP 156/80; PULSE 70; PULSE 78; RESP 14; TEMP 36.8
[2021-10-22 04:32] VITALS: BMI 29.1
[2021-10-22 05:53] VITALS: BP 177/82; PULSE 72; RESP 22; O2SAT 100
[2021-10-22 06:20] LABS: Chloride 112 mmol/L (98-107)
[2021-10-22 06:21] LABS: Potassium 4.6 mmoL/L (3.5-5.1); Sodium 138 mmol/L (136-145)
[2021-10-22 06:23] LABS: Alanine Aminotransferase 38 U/L (12-78); Alkaline Phosphatase 52 U/L (38-126); Anion Gap 10.6 mEq/L (5-15); Aspartate Amino Transferase 51 U/L (17-59); Bilirubin,Total 0.3 mg/dl (0.2-1.3); Blood Urea Nitrogen 32 mg/dl (9-20); Carbon Dioxide 20 mmol/L (22.0-30.0); Creatinine Clearance Estimated 106 mL/min (50-200); Estimated Glomerular Filt Rate 76 ml/min (>60); GFR (African American) 93 ML/MIN (>60)
[2021-10-22 06:24] LABS: Albumin Level 3.7 g/dl (3.5-5.0); Albumin/Globulin Ratio 1.3 (1.1-1.8); Calcium 8.4 mg/dl (8.4-10.2); Globulin 2.8 g/dL (1.3-3.2); Glucose 143 mg/dl (74-100); Total Protein,Serum 6.5 g/dl (6.3-8.2)
[2021-10-22 08:00] VITALS: BP 165/87; PULSE 70; RESP 18; TEMP 36.4; O2SAT 100; O2SAT 99
--- NOTE | 2021-10-22 08:40 | HMH.ACPN2 ---
Internal Medicine - PN: Subj *Date: 10/22/21 *Time: 08:40 Interval history: Patient with no new complaints today, feels much better, wants to go home. Exam Vital signs and Labs for Last 24 Hours: Temp Pulse Resp BP Pulse Ox 97.6 F 70 18 165/87 H 100 10/22/21 08:00 10/22/21 08:00 10/22/21 08:00 10/22/21 08:00 10/22/21 08:00 Laboratory Results - last 24 hr 10/22/21 05:45: Sodium 138, Potassium 4.6, Chloride 112 H, Carbon Dioxide 20 L, Anion Gap 10.6, BUN 32 H, Creatinine 1.00 D, Estimated Creat Clear 106, Estimated GFR 76, Est GFR ( Amer) 93 D, Glucose 143 H, Calcium 8.4, Total Bilirubin 0.3, AST 51, ALT 38, Alkaline Phosphatase 52, Total Protein 6.5, Albumin 3.7, Globulin 2.8, Albumin/Globulin Ratio 1.3 Vital Signs - 24 hr 10/21/21 10:00 10/21/21 12:00 10/21/21 14:00 Temperature 97.7 F Pulse Rate Pulse Rate [Radial] 41 L 54 L 70 Respiratory Rate 16 13 18 Blood Pressure Blood Pressure [Left Arm] 137/62 156/76 H Blood Pressure [Right Arm] 113/56 L 02 Sat by Pulse Oximetry 99 100 95 10/21/21 14:10 10/21/21 14:15 10/21/21 14:30 Temperature Pulse Rate 70 70 70 Pulse Rate [Radial] Respiratory Rate 19 17 Blood Pressure 111/64 134/85 Blood Pressure [Left Arm] Blood Pressure [Right Arm] 02 Sat by Pulse Oximetry 92 L 100 10/21/21 14:45 10/21/21 15:15 10/21/21 15:45 Temperature 96.7 F L 96.7 F L 96.7 F L Pulse Rate Pulse Rate [Radial] 70 70 70 Respiratory Rate 15 16 13 Blood Pressure Blood Pressure [Left Arm] Blood Pressure [Right Arm] 161/87 H 155/83 H 146/80 H 02 Sat by Pulse Oximetry 93 L 98 99 10/21/21 16:00 10/21/21 16:15 10/21/21 16:45 Temperature 96.7 F L 96.7 F L Pulse Rate 70 Pulse Rate [Radial] 70 70 Respiratory Rate 19 15 Blood Pressure Blood Pressure [Left Arm] Blood Pressure [Right Arm] 143/83 H 144/88 H 02 Sat by Pulse Oximetry 98 96 10/21/21 17:45 10/21/21 20:00 10/21/21 23:07 Temperature 96.7 F L 97.9 F 97.5 F L Pulse Rate 70 Pulse Rate [Radial] 70 70 73 Respiratory Rate 13 15 23 Blood Pressure Blood Pressure [Left Arm] Blood Pressure [Right Arm] 172/58 H 172/84 H 168/98 H 02 Sat by Pulse Oximetry 99 95 10/22/21 00:00 10/22/21 02:00 10/22/21 04:00 Temperature 98.3 F Pulse Rate 70 78 Pulse Rate [Radial] 73 70 70 Respiratory Rate 20 18 14 Blood Pressure Blood Pressure [Left Arm] Blood Pressure [Right Arm] 170/86 H 156/80 H 02 Sat by Pulse Oximetry 97 10/22/21 05:53 10/22/21 08:00 Temperature 97.6 F Pulse Rate Pulse Rate [Radial] 72 70 Respiratory Rate 22 18 Blood Pressure Blood Pressure [Left Arm] Blood Pressure [Right Arm] 177/82 H 165/87 H 02 Sat by Pulse Oximetry 100 100 I & O for Last 24 hours: Intake & Output 10/19/21 10/20/21 10/21/21 10/22/21 23:59 23:59 23:59 23:59 Intake Total 2.068 / 2.068 2753 / 2753 1640 / 1640 Output Total 1100 / 1100 2450 / 2750 650 / 650 Balance 2.068 / 2.068 1653 / 1653 -810 / -1110 -650 / -650 Weight 208 lb 3 oz 207 lb 3.752 oz 208 lb 3 oz Microbiology Reports for the Last 24 Hours: Microbiology 10/19/21 17:38 Blood Blood Culture - Preliminary NO GROWTH AFTER 48 HOURS 10/19/21 17:38 Blood Blood Culture - Preliminary NO GROWTH AFTER 48 HOURS - Constitutional no acute distress - *Routine Respiratory Exam Present: CTA bilaterally - *Routine Cardiovascular Exam Present: RRR Assessment and Plan (1) Bradycardia Status: Acute Category: Medical Code(s): R00.1 - Bradycardia, unspecified (2) COVID-19 Status: Acute Category: Medical Code(s): U07.1 - COVID-19 (3) Elevated troponin Status: Acute Category: Medical Code(s): R77.8 - Other specified abnormalities of plasma proteins (4) Hypotension Status: Acute Qualifiers: Hypotension type: unspecified hypotension type Qualified Code(s): I95.9 - Hypotension,
--- NOTE | 2021-10-22 10:09 | HMH.CNCARD ---
History of Present Illness Consult date: 10/22/21 Requesting physician: Jj Valentino Chief complaint: bradycardia, aphasia, COVID-19 History of present illness: This is a 61-year-old white gentleman who presented to the emergency department after noticing issues with his speech on Friday. The patient was having trouble finding his words. He was unable to speak as quickly and is sharply as he normally was and he had been dropping things. The patient was overall weak but no deficits specific to one side. He did have left-sided facial droop. A family member who is a nurse checked his heart rate and his heart rate was in the 40s. They called Dr. Valentino's office and he came to the emergency department for further evaluation. The patient denies any chest pain or pressure. He denies any shortness of breath or edema. He denies headache. He denies any fever, chills, nausea, vomiting, diarrhea, PND or orthopnea. The patient was also recently diagnosed with COVID-19. The patient was found to have sick sinus syndrome and symptomatic bradycardia. The patient was hypotensive and bradycardic. He was started on a Levophed drip. His blood pressure did improve but he remained bradycardic. The patient underwent permanent pacemaker placement yesterday secondary to the sick sinus syndrome. His heart rate is now in the 70s and he is atrial pacing. He continues to deny any chest pain or pressure. He did have a slight elevation in his troponin which is most likely from his COVID-19 infection and a demand ischemia. He is no longer on the Levophed drip and his blood pressure is now well controlled. [facility] History I have reviewed the patient's past medical history: Yes Medical History: Reports:: Cerebrovascular Accident, Hypertension, Internal Pacemaker Denies:: Cancer, Diabetes Mellitus Type 1, Diabetes Mellitus Type 2, MRSA *Have you ever received a pneumonia vaccine?: No *Have you received a flu vaccine this season?: No Other Surgeries: Yes: No Previous Surgery, Other (Back sx) Amputation: No Fractures: No - *Social History Smoking Status: Current every day smoker Tobacco Type: cigarettes # Packs/Day (cigarettes): 1 Alcohol Intake: never Substance Use Type: denies use *Occupational Status:: employed Housing: house Household Members: children *Travel in the last 8 weeks: None Family Hx:: Hypertension, Kidney Disease, Heart Attack Meds Home Medications Medication Instructions Recorded Confirmed Type Amlodipine Besylate [Amlodipine 10 mg PO DAILY 10/19/21 10/19/21 History 10mg Tab] Aspirin [Aspirin 81mg chewable 81 mg PO DAILY 10/19/21 10/19/21 History tab] Atorvastatin Calcium [Lipitor 80mg 80 mg PO HS 10/19/21 10/19/21 History Tablet*] Bisoprolol/Hydrochlorothiazide 2 tab PO DAILY 10/19/21 10/19/21 History [Bisoprolol-Hctz 10-6.25 mg Tab] Lisinopril/Hydrochlorothiazide 1 tab PO DAILY 10/19/21 10/20/21 History [Lisinopril-Hctz 20-12.5 mg Tab] Allergies Allergy/AdvReac Type Severity Reaction Status Date / Time Penicillins Allergy Mild Rash Verified 07/04/18 12:21 Exam Vital signs and Labs for Last 24 Hours: Temp Pulse Resp BP Pulse Ox 97.6 F 70 18 165/87 H 99 10/22/21 08:00 10/22/21 08:00 10/22/21 08:00 10/22/21 08:00 10/22/21 08:00 Laboratory Results - last 24 hr 10/22/21 05:45: Sodium 138, Potassium 4.6, Chloride 112 H, Carbon Dioxide 20 L, Anion Gap 10.6, BUN 32 H, Creatinine 1.00 D, Estimated Creat Clear 106, Estimated GFR 76, Est GFR ( Amer) 93 D, Glucose 143 H, Calcium 8.4, Total Bilirubin 0.3, AST 51, ALT 38, Alkaline Phosphatase 52, Total Protein 6.5, Albumin 3.7, Globulin 2.8, Albumin/Globulin Ratio 1.3 I & O for Last 24 hours: Intake & Output 10/19/21 10/20/21 10/21/21 10/22/21 23:59 23:59 23:59 23:59 Intake Total 2.068 / 2.068 2753 / 2753 1640 / 1640 Output Total 1100 / 1100 2450 / 2750 650 / 650 Balance 2.068 / 2.068 1653 / 1653 -810 / -1110 -650 / -650
--- NOTE | 2021-10-22 22:08 | HMH.DCSUM ---
General - General Admission date:: 10/19/21 Discharge date: 10/22/21 HPI HPI: History obtained from patient, patient's son and son's girlfriend, and family friend that is a nurse. The patient is minimizing his complaints and does not seem like he wants to be here. He feels like he was forced to come here by his family. Family and friends states that since Friday they have noticed that his speech is different than normal. He has trouble finding his words. He does not speak as quickly or sharply as usual. They have noticed him dropping things. No specific one-sided weakness except for a droop of the left side of his mouth. His family friend that is a nurse took his heart rate yesterday and it was in the 40s. She called Dr. Valentino today and he was advised to come to the emergency department for evaluation. The patient denies any pain. He is denying any specific complaints at present. Denies headache. He also was diagnosed with COVID on Friday. He was having body aches and headaches but now that has resolved. States he has been in bed since Friday. 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 He had a CT angiogram of his head and neck done at this facility and then was sent to [facility] in [place]. He says he was seen by a brain surgeon and was advised that he is not a candidate for surgery because of the risk of dislodging or plaque. He was started on cholesterol medication and a baby aspirin a day. He was already on blood pressure medication prior to this event, which is not changed. He is supposed to see a neurologist on October 29. Since those events family states that he has episodes that last several minutes or he will have weakness and blurry vision, however he has never had an episode that lasted this long and the speech problems and left mouth droop are new symptoms. Patient had an episode of aphasia. On examination he has a right facial weakness and mild drift and ataxia of his right arm. Blood pressure noted to be 80s. Heart rate remains in the 40s. Fluid bolus started. Atropine dose given. Blood pressure came up to 110 systolic, but heart rate remained essentially unchanged. However, symptoms improved. He is speaking now and answering questions appropriately. Facial asymmetry improved markedly. He still has mild ataxia of his right arm. I contacted Dr. De Souza at 7:15 PM: He reports that the patient be kept on Levophed drip with target blood pressure greater than 140. If bradycardia persists he will put in a pacemaker. He will contact Dr. Valentino. (above as per ER physician) This morning patient states he feels fine. He has no weakness or facial asymmetry. He states he is breathing normally and has no chest pain. He did have pneumonia on chest x-ray and was started on antibiotics and remdesivir. His heart rate is still in the 40s. He remains on a Levophed drip. His blood pressure has improved. Hospital Course Hospital Course: The patient was admitted and started on COVID vitamins, Levaquin, remdesivir, and dexamethasone. He was also on a Levophed drip with improvement in his blood pressure. His rate, however, remained in the 40s and 50s. His strokelike symptoms resolved. He was seen by Dr. De Souza on 10/21/2021 and a pacemaker was placed. By 10/22/2021, he was feeling much better and wanted to go home. His bradycardia resolved after pacemaker placement. He was weaned from the Levophed drip and his blood pressure medications were resumed. Cardiology felt he would benefit from an outpatient ischemic evaluation with a stress test once he healed from the pacemaker placement. He was stable to be discharged home and will follow up with cardiology. Objective Vital signs: Temp Pulse Resp BP Pulse Ox 97.6 F 70 18 165/87 H 99 10/22/21 08:00 10/22/21 08:00 10/22/21 08:00 10/22/21 08:00 10/22/21 08:00 Narrative: - Constitutional no acute distress <Winter
--- NOTE | 2021-10-23 15:27 | CARE MANAGER ---
Called and spoke with patient regarding post discharge status. Patient states that he plans to attend his f/u appt. He states that he is feeling better and has no issues at this time
== END 2021-10-22 10:25 | disposition home or self-care (01) | DRG 242 ==
LOC: ER 17:24 → 2ND 19:25
PROVIDERS: Internal Medicine; Admitting Provider Family Medicine; Emergency Provider Emergency Medicine; PCP Family Medicine; Visit Provider Family Medicine
PROC: 0JH606Z Insertion of Pacemaker, Dual Chamber into Chest Subcutaneous Tissue and Fascia, Open Approach (ICD-10-PCS; principal; 2021-10-21 12:30)
DX: I49.5 Sick sinus syndrome (principal); J12.82 Pneumonia due to coronavirus disease 2019; U07.1 COVID-19; R47.01 Aphasia; Z86.73 Personal history of transient ischemic attack (TIA), and cerebral infarction without residual deficits; I10 Essential (primary) hypertension; I95.9 Hypotension, unspecified; F17.210 Nicotine dependence, cigarettes, uncomplicated
CPT/HCPCS: 33208; 36415; 70450; 71045; 80053; 82962; 83605; 83880; 84436; 84443; 84479; 84484; 85025; 85610; 85730; 87040; 93005; 99152; 99153; 99291; C1785; C1898; C9803; J1610; J1956; J2405; U0003; U0005

== ENCOUNTER → 2021-11-02 07:15 | Outpatient (CLI) | payer OTHER, SELFPAY ==
--- NOTE | 2021-11-02 07:16 | NM_ITS ---
APPROVED REPORT Exam: Nuclear Stress Test Indication: HTN, TOB USE, FM HX, FATIGUE Patient Location: Outpatient Stress Tech: Jessie Johns NM Tech:Elizabeth LawHENRY RT (R)(N)(M) Ht: 6 ft 0 in Wt: 212 lbs HR: 70 bpm BP: 146/83 mmHg BSA: 2.18 m2 TID: 1.05 History: HTN, TOB USE, FM HX, FATIGUE Procedure: Patient received a 0.4 mg of intravenous Lexiscan, resting heart rate 70 bpm, resting blood pressure 146/83 mmHg, with Lexiscan maximum heart rate achived was 79 bpm which is Less than 85 % of the maximum predicted heart rate and blood pressure was 146/74 mmHg. With Lexiscan, patient denied any complaint of chest pain. C/O SOB Electrocardiogram Resting electrocardiogram showed sinus rhythm inferior and lateral ST-T wave changes consider subendocardial ischemia, with Lexiscan less than 1.[address] segment depression noted from the baseline EKG. The EKG portion of the Lexiscan Myoview was nondiagnostic. Cardiac Stress and Resting SPECT Images: Cardiac Stress and Resting SPECT images were obtained using technetium 99m Myoview 31.2 mCi stress and 10.60 mCi at rest. Gated SPECT for analysis of segmental wall motion and calculation of the ejection fraction also done. Prone images were also obtained. Cardiac stress and rest SPECT images show uniform myocardial activity without segmental perfusion abnormality, computer derived ejection fraction is 53% with no regional wall motion abnormality, right ventricle is normal size and contractility. Conclusion: 1. The EKG portion of the Lexiscan is nondiagnostic. 2. No scintigraphic evidence of reversible ischemia seen, compared to ejection fraction 53% with no regional wall motion abnormality, right ventricle is normal size and contractility. 3. Normal Lexiscan Myoview study. Electronically signed by : Hunter Wolfe MD 11/02/2021 11:54:10
--- NOTE | 2021-11-02 07:16 | CA_ITS ---
APPROVED REPORT Exam: Pharmacologic Technologist: Cony Lilly, Ht: 6 ft 0 in Wt: 215 lbs BSA: 2.20 m2 HR: 70 bpm BP: 146/83 mmHg Medical History Medications: Amlodipine,,,,, Aspirin,,,,, Atorvastatin,,,,, BisOPROLOL-HCTZ,,,,, Lisinopril-HCTZ,,,,, Stress Test Details Test: LEXISCAN Reason for pharmacologic stress test: physical limitation. HR Resting HR: 70 bpm Max Heart Rate (APMHR): 161 bpm Max HR Achieved: 83 bpm Target HR (85% APMHR): 137 bpm % of APMHR: 52 Recovery HR: 70 bpm BP Resting BP: 146/83 mmHg Max BP: 146/83 mmHg Recovery BP: 143.0/83.0 mmHg ECG Resting ECG: NSR [address] segment at baseline Clinical Exercise duration: 03:41 min Highest Stage Achieved: Stress ECG Conclusion Symptoms: SOA Arrhythmias/Ectopy: none ST-T Changes: <1.5mm ST Change. Electronically signed by : Hunter Wolfe MD 11/02/2021 11:51:58
== END ==
PROVIDERS: PCP Family Medicine; Visit Provider Nurse Practitioner Family
DX: R06.00 Dyspnea, unspecified (principal); I10 Essential (primary) hypertension; Z95.0 Presence of cardiac pacemaker
CPT/HCPCS: 78452; 93017; A9502; J2785